=== PATIENT | female | born 1950 | race Caucasian/White ===

== ENCOUNTER 2018-03-16 13:28 | Outpatient (CLI) | payer MEDICARE, SELFPAY ==
[2018-03-16 14:04] LABS: Hemoglobin A1C 8.5 % (4.5-6.2)
== END 2018-03-16 13:48 ==
PROVIDERS: Nurse Practitioner Family; PCP Physician Assistant Medical; Visit Provider Anesthesiology Pain Medicine
DX: E11.9 Type 2 diabetes mellitus without complications (principal); Z79.4 Long term (current) use of insulin
CPT/HCPCS: 83036

== ENCOUNTER 2018-03-24 11:54 | Outpatient (CLI) | payer MEDICARE, MEDICAID, SELFPAY ==
--- NOTE | 2018-03-24 06:00 | DI.RAD_ITS ---
SYMPTOM/DIAGNOSIS: LUMBAR RADICULOPATHY C-ARM FLUOROSCOPY LUMBAR SPINE: Fluoroscopy Time: 24.8 seconds/9.46 mGy Fluoroscopy was provided for guidance with [facility] injections. Hard copy images show needle position at the L4-5 level. Please see procedure note for details.
[2018-03-24 12:08] VITALS: BP 147/76; PULSE 57; RESP 18; TEMP 36.7; O2SAT 98
--- NOTE | 2018-03-24 13:19 | PDOC.PAIN ---
Pain Clinic Procedure Note Current Active Problems Problem Status Onset Lumbar radicular pain Chronic Epidural Steroid Injection Procedure Note COMMENTS: Patient has back and right radicular symptoms with some foraminal narrowing at L4-5. She is steroid injections in the past which have given her up to a year relief of pain. JULIA SHERIFF has been referred to the [facility] for lumbar epidural steroid injection. The patient was greeted by the nurse who verified patients name and . Patient was then taken to the fluoroscopy suite. The patient was interviewed and the medial record reviewed. There were no medical, pharmacologic, radiographic, or other structural contraindications to attempting fluoroscopically guided lumbar epidural steroid injection. Risks and expected side effects as well as potential benefits of the procedure were reviewed and voiced concerns expressed. The patient consent form was signed and witnessed. Standard patient time-out procedure was performed. The patient was placed in the prone position on the fluoroscopy table and automated blood pressure cuff and pulse oximeter applied. The skin entry point for entering/approaching the epidural space by a {L4-5 } and marked. Following thorough chlorhexadine preparation of the skin and draping and 1% lidocaine infiltration of the skin entry point and subcutaneous tissues, a 18 gauge Touhy needle was placed under fluoroscopic guidance and with loss of resistance technique into the epidural space. Needle tip placement and depth were aided and confirmed by fluoroscopy. There was no paresthesia or return of blood or CSF through the needle. 1 cc's of Omnipaque 240 was injected with clear epidural spread confirmed with fluoroscopy. 80mg depomedrol was injected. There was not any unusual discomfort expressed by JULIA SHERIFF. Patient's vital signs were stable throughout the procedure and were as recorded in nursing records. Follow up plans and appointments were discussed with patient. Post procedure instruction was given as documented in nursing records and having met discharge criteria and was discharged from the [facility]. COMMENTS: patient will follow-up as needed. Could repeat as needed. We discussed since she is diabetic she needs to check her blood glucose. It was 168 today in clinic. She says she usually does not tested because she cannot afford test. We are making arrangements to help her take care of this. S it is I made it clear that it is important for her to be checking her glucose postprocedure and on a regular basis.
[2018-03-24] MEDS: methylPREDNISolone ACETATE 40 MG/ML VIAL IJ (13:27)
[2018-03-24] MEDS: Omnipaque 240 MG/ML 50 ML BTL IJ (13:27)
[2018-03-24 13:31] VITALS: BP 162/85; PULSE 63; RESP 13; O2SAT 99
== END 2018-03-24 12:14 ==
PROVIDERS: PCP Physician Assistant Medical; Visit Provider Anesthesiology Pain Medicine
DX: M54.16 Radiculopathy, lumbar region (principal); G89.29 Other chronic pain
CPT/HCPCS: 62323; 72100; J1030; Q9967